=== PATIENT | male | born 1975 | race Caucasian/White ===

== ENCOUNTER 2018-05-04 22:17 | Emergency (ER) | payer OTHER | END 2018-05-04 23:57 | disposition home or self-care (01) | LOC: EDH 22:17 | DX: S83.8X2A Sprain of other specified parts of left knee, initial encounter (principal); X58.XXXA Exposure to other specified factors, initial encounter; Y93.89 Activity, other specified; Y92.69 Other specified industrial and construction area as the place of occurrence of the external cause; Y99.8 Other external cause status | CPT/HCPCS: 29505; 73562 ==

== ENCOUNTER 2018-09-04 06:33 | Day surgery (SDC) | payer OTHER ==
[2018-09-03 16:23] VITALS: BP 124/79
[2018-09-03 16:27] LABS: BASOPHILS % (AUTO) 0.2 % (0.0-5.0); EOSINOPHILS % (AUTO) 1.7 % (0.0-8.0); HEMATOCRIT 47.9 % (42-54); LYMPHOCYTES % (AUTO) 32.1 % (21.0-51.0); MEAN CORPUSCULAR HEMOGLOBIN 31.6 pg (27.0-33.0); MEAN CORPUSCULAR HGB CONC 34.9 g/dL (32.0-36.0); MEAN CORPUSCULAR VOLUME 90.6 fL (79-99); MONOCYTES % (AUTO) 8.8 % (3.0-13.0); NEUTROPHILS % (AUTO) 57.2 % (40.0-77.0); NUCLEATED RED BLOOD CELLS 0.1 % (0.0-0.19); PLATELET COUNT (AUTO) 262 K/uL (130-400); RED BLOOD CELL COUNT(AUTO) 5.29 MIL/uL (4.50-6.20); RED CELL DISTRIBUTION WIDTH 13.6 % (11.0-15.5); WHITE BLOOD COUNT (AUTO) 11.7 K/uL (4.8-10.8)
[2018-09-03 16:42] LABS: CREATININE 0.9 mg/dL (0.5-1.5)
[2018-09-04] VITALS (12 sets, daily range): BP systolic 118–128; BP diastolic 68–84
[~2018-09-04] VITALS: Ht 172.7 cm; Wt 117.8 kg
[~2018-09-04 06:33] MED LIST: ACET325C PO; CEFAZOLIN 3GM /D5W 100ML 100 ML IV SCH; CETI-101 PO
[2018-09-04] MEDS ORDERED: CEFAZOLIN SODIUM 1 GM VIAL ONE (07:58)
[2018-09-04] MEDS ORDERED: LACTATED RINGERS 1000ML 1,000 ML IV ONE (07:58)
[2018-09-04] MEDS ORDERED: LIDOCAINE PF 2% 5ML ABBOJECT ONE (08:45)
[2018-09-04] MEDS ORDERED: ONDANSETRON HCL 4 MG/2 ML VIAL ONE (08:45)
[2018-09-04] MEDS ORDERED: DEXAMETHASONE SOD PHOSPHATE 10MG/ML 1ML VIAL ONE (08:45)
[2018-09-04] MEDS ORDERED: FENTANYL CITRATE PF 50 MCG/1 ML 2ML VIAL ONE (08:46)
[2018-09-04] MEDS ORDERED: MIDAZOLAM HCL 1 MG/ML 2ML VIAL ONE (08:46)
[2018-09-04] MEDS ORDERED: PROPOFOL 10 MG/ML 20ML VIAL IV ONE (08:46)
[2018-09-04] MEDS ORDERED: TYL3 PO (10:18)
[2018-09-04] MEDS ORDERED: CEPH500B PO (10:18)
[2018-09-04] MEDS ORDERED: NAPR-1023 PO (10:24)
[2018-09-04] MEDS ORDERED: MEPERIDINE-PF 25 MG/ML SYG ONE (10:48)
[2018-09-04] MEDS ORDERED: ACETAMINOPHEN-CODEINE 300/30MG TAB PO ONE (11:30)
== END 2018-09-04 11:59 | disposition home or self-care (01) ==
LOC: SUH 06:33 → DAH 06:33 → SUH 11:59
PROVIDERS: ATTEND Orthopaedic Surgery
DX: M23.222 Derangement of posterior horn of medial meniscus due to old tear or injury, left knee (principal); M94.262 Chondromalacia, left knee; Z79.899 Other long term (current) drug therapy; Z68.39 Body mass index [BMI] 39.0-39.9, adult
CPT/HCPCS: 29881; 36415; 80048; 85025; A4606; A4649 ×2; A4930 ×2; A6223; J0690; J1100; J2001; J2175; J2250; J2405; J2704; J3010; J7120